=== PATIENT | female | born 1985 | race Two or more races ===

== ENCOUNTER 2019-02-04 10:42 | Emergency (ER) | payer OTHER ==
[~2019-02-04] VITALS: Ht 154.9 cm; Wt 56.2 kg
[2019-02-04] MEDS ORDERED: NKM (10:48)
--- NOTE | 2019-02-04 11:03 | NUR ---
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 contiued pain with weight bearing and some sitting positions. good cms distally. no obvious edema or ecchymosis noted awaiting md gtz. denies other injury
[2019-02-04] MEDS ORDERED: TYLENOL EXTRA500 MG ORAL (11:25)
[2019-02-04] MEDS ORDERED: ROBAXIN-750750 MG PO (11:25)
[2019-02-04] MEDS ORDERED: LIDODERM700 M1 TOPIC (11:25)
--- NOTE | 2019-02-04 11:55 | NUR ---
ER DISCHARGE NOTE: Patient is cleared to be discharged per ERMD, pt is aox4, on room air, with stable vital signs. pt was given dc and prescription instructions, pt was able to verbalize understanding, pt id band removed without complications. pt is able to ambulate with steady gait. pt took all belongings.
[2019-02-04 11:57] VITALS: BP 128/70
--- NOTE | 2019-02-06 14:41 | Emergency Room Report ---
History of Present Illness General Chief Complaint: Lower Extremity Injury Source: Patient Present Illness HPI 33-year-old female presents ED for evaluation. Patient complaining of right leg pain. States that it occurred after she stepped awkwardly off of her truck at work yesterday and felt a pain in the back of her leg. Pain is cramping, 6 out of 10, nonradiating. Is able to walk. Denies any other injuries. No other aggravating or relieving factors. Denies any other associated symptoms Allergies: Coded Allergies: No Known Allergies (Unverified , 02/04/19) Patient History Past Medical History: none Past Surgical History: none Pertinent Family History: none Social History: Denies: smoking, alcohol use, drug use Last Menstrual Period: 12/28/18 Now: No Immunizations: UTD Reviewed Nursing Documentation: PMH: Agreed; PSxH: Agreed Nursing Documentation-PMH Past Medical History: No Stated History Review of Systems All Other Systems: negative except mentioned in HPI Physical Exam Vital Signs Date Time Temp Pulse Resp B/P (MAP) Pulse Ox O2 Delivery O2 Flow Rate FiO2 02/04/19 10:44 98.4 88 16 141/99 (113) 96 Room Air Sp02 EP Interpretation: reviewed, normal General Appearance: no apparent distress, alert, GCS 15, non-toxic Head: normocephalic Eyes: bilateral eye normal inspection, bilateral eye PERRL ENT: normal ENT inspection Neck: normal inspection Respiratory: normal inspection Cardiovascular #1: normal inspection Gastrointestinal: normal inspection Rectal: deferred Genitourinary: no CVA tenderness Musculoskeletal: normal range of motion, no calf tenderness, tender - R hamstring TTP. no swelling or fluctuance. full ROM R Knee Neurologic: alert, oriented x3, responsive, motor strength/tone normal, sensory intact, speech normal Psychiatric: normal inspection Skin: normal color Lymphatic: normal inspection Medical Decision Making Diagnostic Impression: Primary Impression: Hamstring muscle strain Qualified Codes: S76.311A - Strain of muscle, fascia and tendon of the posterior muscle group at thigh level, right thigh, initial encounter ER Course Hospital Course 33-year-old female presents to ED complaining of R thigh pain Differential diagnoses include: Fracture, dislocation, sprain, contusion, bursitis Clinical course Patient placed on stretcher. After initial history, physical exam reveals a female in no acute distress. There is some tenderness to the the right hamstring. No crepitus or bruising. No bony tenderness. Full range of motion noted to the right knee. discussed findings with patient. Given presentation likely hamstring strain. Provide prescriptions. Safe for discharge with close outpatient follow-up. Will provide referrals Diagnosis - hamstring strain stable and discharged to home with prescription for tylenol, robaxin, lidoderm. Followup with ortho. Return to ED if symptoms recur or worsen Last Vital Signs Date Time Temp Pulse Resp B/P (MAP) Pulse Ox O2 Delivery O2 Flow Rate FiO2 02/04/19 11:57 70 18 128/70 98 Room Air 02/04/19 10:44 98.4 Status: improved Disposition: HOME, SELF-CARE Condition: Stable Scripts Lidocaine (Lidoderm) 1 Each Adh..patch 1 PATCH TOPIC DAILY, #7 PATCH 0 Refills Patch(es) may remain in place for up to 12 hours in any 24-hour period. Prov: Schuyler Simpson MD 02/04/19 Methocarbamol* (ROBAXIN-750*) 750 Mg Tablet 750 MG PO TID, #21 TAB 0 Refills Prov: Schuyler Simpson MD 02/04/19 Acetaminophen* (TYLENOL EXTRA STRENGTH*) 500 Mg Tablet 500 MG ORAL Q8H PRN for Prn Headache/Temp > 101, #30 TAB 0 Refills Prov: Schuyler Simpson MD 02/04/19 Referrals: NOT CHOSEN [facility]/,REFERRING (PCP) [facility] Open 24 hour /7 days a week by Appointment Only [address] [facility] [id number] Departure Forms: Return to Work Return to Work Date: Feb 06, 2019 Work Restrictions: No Heavy Lifting Patient Instructions: Hamstring Strain With [facility] Schuyler Simpson MD Feb 06, 2019 14:41
== END 2019-02-04 11:55 | disposition home or self-care (01) ==
LOC: EMR 11:37
DX: S76.311A Strain of muscle, fascia and tendon of the posterior muscle group at thigh level, right thigh, initial encounter (principal); X58.XXXA Exposure to other specified factors, initial encounter; Y92.9 Unspecified place or not applicable
CPT/HCPCS: 99282